=== PATIENT | female | born 2000 | race Caucasian/White ===

== ENCOUNTER 2019-09-20 07:17 | Emergency (ER) | payer OTHER ==
[~2019-09-20] VITALS: Ht 160 cm; Wt 52.2 kg
--- NOTE | 2019-09-20 07:30 | NUR ---
Patient to ER bed 5 to gown for evaluation. Side rails up.
[2019-09-20 07:33] VITALS: BP_SYST 128
--- NOTE | 2019-09-20 07:35 | NUR ---
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 stung by sting ray nine days ago. pt has one inch area on right foot of swelling and discoloration. pt reports seeking prior treatment, no intervention done.
--- NOTE | 2019-09-20 07:38 | NUR ---
Patient to ER bed 5 to gown for evaluation. Side rails up. Report given to TRISTAN BARROS
--- NOTE | 2019-09-20 07:40 | NUR ---
ER at bedside examining patient.
--- NOTE | 2019-09-20 07:57 | NUR ---
x-ray at the bedside.
[2019-09-20 09:40] VITALS: BP_SYST 128
--- NOTE | 2019-09-20 09:40 | NUR ---
Patient given written and verbal discharge instructions and verbalizes understanding. ER MD discussed with patient the results and treatment provided. Patient in stable condition. ID arm band Rx of Ibuprofen given. Patient educated on pain management and to follow up with PMD. Pain Scale 3/10.Opportunity for questions provided and answered. Medication side effect fact sheet provided.
== END 2019-09-20 09:40 | disposition home or self-care (01) ==
LOC: SED 07:17
DX: S99.821A Other specified injuries of right foot, initial encounter (principal); T63.891A Toxic effect of contact with other venomous animals, accidental (unintentional), initial encounter; Y92.89 Other specified places as the place of occurrence of the external cause; Y93.89 Activity, other specified; Y99.8 Other external cause status
CPT/HCPCS: 99283